=== PATIENT | female | born 1990 | race Caucasian/White ===

== ENCOUNTER 2019-06-04 12:27 | Inpatient (IN) | payer SELFPAY ==
[2019-06-04 12:33] VITALS: BP 122/88; PULSE 97; RESP 18; TEMP 36.8; O2SAT 97; BMI 35.9
[2019-06-04 12:58] VITALS: O2SAT 99
[2019-06-04 13:59] LABS: Bilirubin Urine Neg (NEGATIVE); Blood Urine Neg (Negative); Glucose Urine UA Norm (Normal); Ketones Urine Negative (Negative); Leukocyte Esterase Urine 2+ (Negative); Nitrate Urine Negative (Negative); Protein Urine Trace (Negative); Urine Appearance Cloudy (CLEAR); Urine Color Yellow (Yellow); Urobilinogen Urine Norm (Negative); pH Urine 5 (5-7)
[2019-06-04 14:06] LABS: Bacteria Urine 2+; RBC Urine 0-4 /hpf (0-2); WBC Urine 55-80 /hpf (0-5)
[2019-06-04 14:13] LABS: Barbiturates Screen Urine Negative (Negative); Benzodiazepines Screen Urine Negative (Negative); Cocaine Screen Urine Negative (Negative); Opiate Screen Urine Negative (Negative); PCP Screen Urine Negative (Negative); THC Screen Urine Positive (Negative)
[2019-06-04 14:15] LABS: Basophils % 0.2 %; Eosinophils # 0.1 10^3/uL (0.0-0.8); Eosinophils % 2.2 %; Hematocrit 38.9 % (37.0-47.0); Hemoglobin 12.5 g/dL (11.5-15.3); Lymphocytes # 1.1 10^3/uL (0.8-4.8); Lymphocytes % 23.2 %; Mean Corpuscular HGB Conc 32.1 g/dL (30.0-36.0); Mean Corpuscular Hemoglobin 27.2 pg (28.0-34.0); Mean Corpuscular Volume 84.6 fL (81-99); Mean Platelet Volume 11.3 fL (7.4-10.4); Monocytes # 0.4 10^3/uL (0.2-0.9); Neutrophils # 3.1 10^3/uL (1.8-7.7); Neutrophils % 66.2 %; Nucleated Red Blood Cells % 0 %; Platelet Count 268 10^3/cmm (130-400); Red Cell Distribution Width 14.5 % (12.1-15.1); White Blood Count 4.6 10^3/uL (4.0-10.0)
[2019-06-04 14:18] LABS: HCG, Serum Qual Negative (Negative)
--- NOTE | 2019-06-04 14:21 | ED_ITS ---
HPI - Psych General: Chief Complaint: Psychiatric Symptoms Stated Complaint: dizzy Time Seen by Provider: 06/04/19 12:51 Source: patient Mode of arrival: ambulatory Limitations: no limitations History of Present Illness: HPI Narrative: Patient is a 28-year-old female who presents to ED today with complaints of suicidal ideation over the past few days. Patient tells me that she feels she is not good enough and feels that the world would be better off without her. She has no specific plan. She reports a previous suicide attempt 1 year ago by cutting. She does not take any current medications for her depression. She tells me she does have a history significant for bipolar personality disorder, depression with schizophrenic tendencies, and anxiety. Patient states she is currently homeless and unemployed. She is currently living with a friend. She tells me she has 3 kids all of which are in the custody of family members. complaint: suicidal ideation Onset (ago): day(s) Duration: constant Relieving factors: none Exacerbating factors: none Associated psychiatric symptoms: depression and suicidal ideation Associated symptoms: Reports depression and suicidal ideation; Deny auditory hallucinations, visual hallucinations or homicidal ideation Treatments prior to arrival: none If self harm: admits thoughts of self harm Review of Systems Const: Denies: fever or chills Card: Denies: chest pain, palpitations, lightheadedness or syncope Resp: Denies: shortness of breath GI: Denies: abdominal pain, nausea, vomiting or diarrhea Skin/Breast: Denies: rash Neuro: Denies: headache Psych: Reports: anxiety, depression and suicidal ideation; Denies: visual hallucinations, auditory hallucinations or homicidal ideation PFS ED PFSH: Statuses (acute, chronic, etc) shown below reflect problem list status as previously entered and may not be historically accurate Social History Smoking and tobacco status: current every day smoker Female Reproductive History: Date of last menstrual period: 05/24/19 Physical Exam Const: COMMON NORMALS: no apparent distress, oriented x3, alert and well nour ished GENERAL APPEARANCE: cooperative Resp: COMMON NORMALS: normal respiratory effort and clear to auscultation bilaterally AUSCULTATION: clear to auscultation bilaterally Cardio: COMMON NORMALS: regular rate and regular rhythm RATE: regular rate RHYTHM: regular rhythm Neuro: COMMON NORMALS: oriented x3 SENSORIUM/ORIENTATION: Yes alert Psych: COMMON NORMALS: mental status grossly normal, thought process normal, cooperative, affect normal, speech normal and activity/motor behavior normal ACTIVITY/MOTOR BEHAVIOR: Yes appropriate eye contact and No psychomotor agitation SPEECH: Yes normal speech THOUGHT PROCESS: normal thought process MEMORY/COGNITION: Yes memory grossly intact and Yes cognition grossly intact INSIGHT: insight good JUDGEMENT: judgment good MDM - Psych MDM Narrative: Medical decision making narrative: Dr. Diaz will write admit orders to NPU. Will write for RX for her UTI. Lab Data: Labs: Lab Results 06/04/19 06/04/19 06/04/19 Range/Units 12:45 12:45 13:50 WBC 4.6 (4.0-10.0) 10^3/ uL RBC 4.60 (4.1-5.3) 10^6/u L Hgb 12.5 (11.5-15.3) g/dL Hct 38.9 (37.0-47.0) % MCV 84.6 (81-99) fL MCH 27.2 L (28.0-34.0) pg MCHC 32.1 (30.0-36.0) g/dL RDW 14.5 (12.1-15.1) % Plt Count 268 (130-400) 10^3/c mm MPV 11.3 H (7.4-10.4) fL Neut % (Auto) 66.2 % Lymph % (Auto) 23.2 % Williams % (Auto) 8.0 % Eos % (Auto) 2.2 % Baso % (Auto) 0.2 % Neut # (Auto) 3.1 (1.8-7.7) 10^3/u L Lymph # (Auto) 1.1 (0.8-4.8) 10^3/u L Williams # (Auto) 0.4 (0.2-0.9) 10^3/u L Eos # (Auto) 0.1 (0.0-0.8) 10^3/u L Baso # (Auto) 0.0 (0.0-0.1) 10^3/u L Nucleated RBC % (a uto) 0 % Nucleated RBCs # 0.0 /100WBC Sodium (136-145) mmol/L Potassium (3.5-5.1) mmol/L Chloride (98-107) mmol/L Carbon Dioxide (22-29) mmol/L Anion Gap (5-19) BUN (6-20) mg/dL Creatinine (0.5-0.9) mg/dL GFR Calculation (90-130) mL/min Glucose (65-115) mg/dL Calcium (8.5-10.5) mg/dL Total Bilirubin (0.15-1.2) mg/dL AST (0-32) U/L ALT (0-33) U/L Alkaline Phosphata se (35-105) IU/L Total Protein (6.6-8.7) g/dL Albumin (3.5-5.2) g/dL Globulin (1.3-4.6) g/dL HCG, Qual (Negative) Urine Color Yellow (Yellow) Urine Appearance Cloudy (CLEAR) Urine pH 5 (5-7) Ur Specific Gravit y 1.020 (1.005-1.030) Urine Protein Trace (Negative) Urine Glucose (UA) Norm (Normal) Urine Ketones Negative (Negative) Urine Occult Blood Neg (Negative) Urine Nitrate Negative (Negative) Urine Bilirubin Neg (NEGATIVE) Urine Urobilinogen Norm (Negative) mg/dL Ur Leukocyte Veronica ase 2+ H (Negative) Urine RBC 0-4 H (0-2) /hpf Urine WBC 55-80 H (0-5) /hpf Ur Squamous Epith Cells 10-15 H (0-5) Urine Bacteria 2+ H (NONE) Salicylates (3-10) mg/dL Urine Opiates Scre en Negative (Negative) ng/mL Acetaminophen (10-30) ug/mL Ur Barbiturates Sc reen Negative (Negative) ng/mL Ur Phencyclidine S crn Negative (Negative) ng/mL Ur Amphetamines Sc reen Positive H (Negative) ng/mL U Benzodiazepines Scrn Negative (Negative) ng/mL Urine Cocaine Scre en Negative (Negative) ng/mL U Marijuana (THC) Screen Positive H (Negative) ng/mL Ethyl Alcohol (0-10) mg/dL 06/04/19 06/04/19 Range/Units 13:50 13:50 WBC (4.0-10.0) 10^3/ uL RBC (4.1-5.3) 10^6/u L Hgb (11.5-15.3) g/dL Hct (37.0-47.0) % MCV (81-99) fL MCH (28.0-34.0) pg MCHC (30.0-36.0) g/dL RDW (12.1-15.1) % Plt Count (130-400) 10^3/c mm MPV (7.4-10.4) fL Neut % (Auto) % Lymph % (Auto) % Williams % (Auto) % Eos % (Auto) % Baso % (Auto) % Neut # (Auto) (1.8-7.7) 10^3/u L Lymph # (Auto) (0.8-4.8) 10^3/u L Williams # (Auto) (0.2-0.9) 10^3/u L Eos # (Auto) (0.0-0.8) 10^3/u L Baso # (Auto) (0.0-0.1) 10^3/u L Nucleated RBC % (a uto) % Nucleated RBCs # /100WBC Sodium 136 (136-145) mmol/L Potassium 4.2 (3.5-5.1) mmol/L Chloride 101 (98-107) mmol/L Carbon Dioxide 26 (22-29) mmol/L Anion Gap 13.2 (5-19) BUN 11 (6-20) mg/dL Creatinine 0.9 (0.5-0.9) mg/dL GFR Calculation 74.6 L (90-130) mL/min Glucose 95 (65-115) mg/dL Calcium 9.6 (8.5-10.5) mg/dL Total Bilirubin 0.3 (0.15-1.2) mg/dL AST 12 (0-32) U/L ALT 14 (0-33) U/L Alkaline Phosphata se 84 (35-105) IU/L Total Protein 7.0 (6.6-8.7) g/dL Albumin 4.3 (3.5-5.2) g/dL Globulin 2.7 (1.3-4.6) g/dL HCG, Qual Negative (Negative) Urine Color (Yellow) Urine Appearance (CLEAR) Urine pH (5-7) Ur Specific Gravit y (1.005-1.030) Urine Protein (Negative) Urine Glucose (UA) (Normal) Urine Ketones (Negative) Urine Occult Blood (Negative) Urine Nitrate (Negative) Urine Bilirubin (NEGATIVE) Urine Urobilinogen (Negative) mg/dL Ur Leukocyte Veronica ase (Negative) Urine RBC (0-2) /hpf Urine WBC (0-5) /hpf Ur Squamous Epith Cells (0-5) Urine Bacteria (NONE) Salicylates < 0.3 L (3-10) mg/dL Urine Opiates Scre en (Negative) ng/mL Acetaminophen < 5.0 L (10-30) ug/mL Ur Barbiturates Sc reen (Negative) ng/mL Ur Phencyclidine S crn (Negative) ng/mL Ur Amphetamines Sc reen (Negative) ng/mL U Benzodiazepines Scrn (Negative) ng/mL Urine Cocaine Scre en (Negative) ng/mL U Marijuana (THC) Screen (Negative) ng/mL Ethyl Alcohol < 10 (0-10) mg/dL Discharge Plan Discharge Patient Disposition: Xfer Psychiatric Hosp Clinical Impression: Suicidal ideation, Polysubstance abuse UTI (urinary tract infection) Qualifiers: Urinary tract infection type: acute cystitis Hematuria presence: with hematuria Qualified Code(s): N30.01 - Acute cystitis with hematuria Condition: Stable Referrals: Josef Gore MD [Primary Care Provider] - Coding Level of Care Code ED Embedded Hardware Engineer for Chg Fwd Exam Problem Focused
[2019-06-04 14:25] LABS: Alanine Aminotransferase 14 U/L (0-33); Albumin Level 4.3 g/dL (3.5-5.2); Alkaline Phosphatase 84 IU/L (35-105); Anion Gap 13.2 (5-19); Aspartate Amino Transferase 12 U/L (0-32); Blood Urea Nitrogen 11 mg/dL (6-20); Calcium 9.6 mg/dL (8.5-10.5); Carbon Dioxide 26 mmol/L (22-29); Chloride 101 mmol/L (98-107); Globulin 2.7 g/dL (1.3-4.6); Glomerular Filtration Rate 74.6 mL/min (90-130); Glucose 95 mg/dL (65-115); Potassium 4.2 mmol/L (3.5-5.1); Sodium 136 mmol/L (136-145); Total Bilirubin 0.3 mg/dL (0.15-1.2)
[2019-06-04 14:28] LABS: Acetaminophen < 5.0 ug/mL (10-30); Alcohol Level < 10 mg/dL (0-10); Salicylate < 0.3 mg/dL (3-10)
[2019-06-04 14:28] LABS: Amphetamines Screen Urine Positive (Negative)
[2019-06-04 15:54] VITALS: BP 117/82; PULSE 90; RESP 16; O2SAT 99
[2019-06-04 16:08] VITALS: BP 131/84; PULSE 106; RESP 20; TEMP 36.8; O2SAT 97
[2019-06-04 17:15] VITALS: BP 131/84; PULSE 106; RESP 20; TEMP 36.8; O2SAT 97
[2019-06-04 19:56] VITALS: BP 112/79; PULSE 95; RESP 20; TEMP 36.8; O2SAT 95
--- NOTE | 2019-06-04 21:44 | P.PN_ITS ---
Subjective NPU Subjective: Interval history: Patient is a 28-year-old female who presents to ED today with complaints of suicidal ideation over the past few days. Patient tells me that she feels she is not good enough and feels that the world would be better off without her. She has no specific plan. She reports a previous suicide attempt 1 year ago by cutting. She does not take any current medications for her depression. She tells me she does have a history significant for bipolar personality disorder, depression with schizophrenic tendencies, and anxiety. Patient states she is currently homeless and unemployed. She is currently living with a friend. She tells me she has 3 kids all of which are in the custody of family members. Mental Status Exam MSE Comments: This is a 28-year-old female who presents at her stated age. Presentation is clean and well-groomed. Mood is quite depressed with affect frequently tearful. Thought processes are integrated and free of any racing, blocking or looseness of association. There is no evidence of psychosis, such as but not limited to hallucinations, delusions, ideas of reference. There are, I must admit, voices that tell her she is worthless. However, these express, I believe, the patient's self-esteem, is suppressed, with persistent ideation that the world would be better off without her. They are not, I believe, anything more than symptoms of a severe depression. Cognitive functions are intact, with orientation x3, unimpaired memory, recent and remote, although insight and judgment appear to be impaired. She does verbalize suicidal, but not homicidal, ideation, plan or intent. She believes she can keep herself safe here in the [facility] [place] [facility]. Vitals/I&O/Wt Last Vital Signs Temp 98.2 F 06/04/19 19:56 Pulse 95 06/04/19 19:56 Resp 20 H 06/04/19 19:56 BP 112/79 06/04/19 19:56 Pulse Ox 95 06/04/19 19:56 Weight last 48 hrs Weight 236 lb Data NPU : 06/04/19 13:50 06/04/19 13:50 A&P Additional A&P Information 1. Major depressive disorder, recurrent, severe. 2. Cystitis with hematuria. Involuntary Hold Information 96 Hour Hold: 96 Hour Involuntary Admission: No Attestations NPU Medical Necessity Statement*: Patient is in the throes of a pronounced pressure by episode and is at risk. I anticipate 5-7 midnights additional hospitalization Time Spent in Patient Care: Greater than 35 minutes (>than 50% of time spent in counselling and/or direct pt care on unit) . Coding Level of Care Code Acute Time Buyer for Ethel Jameson
[2019-06-04] MEDS: sulfamethoxazole-trimeth DS 160-800 mg Tablet 1 TAB PO (22:35)
[2019-06-05 06:00] VITALS: BP 115/81; PULSE 90; RESP 21; TEMP 36.9; O2SAT 98
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
[2019-06-05] MEDS: sulfamethoxazole-trimeth DS 160-800 mg Tablet 1 TAB PO ×2 (08:24→17:40)
[2019-06-05] MEDS: acetaminophen 325 mg Tablet 650 MG PO (08:24)
--- NOTE | 2019-06-05 11:40 | P.HP_ITS ---
Providers/Chief Complaint Admitting Physician: Naun Magallon Primary Care Provider: Josef Gore MD Chief Complaint: dizzy HPI NPU History of Present Illness Renetta Tom is a 28 year old female Meds NPU Home Medications Medication Instructions Recorded Confirmed Type No Known Home Medications 06/04/19 06/04/19 History Allergies Allergy/AdvReac Type Severity Reaction Status Date / Time dicyclomine [From Bentyl] Allergy ALGY-Swell Verified 06/04/19 12:38 Lip/Tongue/Throat PFSH NPU PFSH: Social History Smoking and tobacco status: current every day smoker Vitals/I&O/Wt Last Vital Signs Temp 98.4 F 06/05/19 06:00 Pulse 90 06/05/19 06:00 Resp 21 H 06/05/19 06:00 BP 115/81 06/05/19 06:00 Pulse Ox 98 06/05/19 06:00 Weight last 48 hrs Weight 107.048 kg Data NPU : 06/04/19 13:50 06/04/19 13:50 Involuntary Hold Information 96 Hour Hold: 96 Hour Involuntary Admission: No Attestations NPU Medical Necessity Statement*: patient remained in the hospital another 3-5 days for verification of safety of medication. Coding Level of Care Code Acute Property Damage Claims Adjustor for Ethel Jameson
[2019-06-05] MEDS: fluoxetine 20 mg Capsule PO (12:04)
[2019-06-05 13:05] VITALS: BP 116/79; PULSE 84; RESP 18; TEMP 36.9; O2SAT 97
[2019-06-05 21:24] VITALS: BP 123/85; PULSE 93; RESP 20; TEMP 37.1
[2019-06-06 06:00] VITALS: BP 115/78; PULSE 85; RESP 18; TEMP 36.8; O2SAT 98
[2019-06-06] MEDS: fluoxetine 20 mg Capsule PO (09:04)
[2019-06-06] MEDS: sulfamethoxazole-trimeth DS 160-800 mg Tablet 1 TAB PO (09:04)
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
[2019-06-06 10:51] VITALS: BP 115/78; PULSE 85; RESP 18; TEMP 36.8; O2SAT 98
== END 2019-06-06 12:36 | disposition home or self-care (01) | DRG 885 ==
LOC: ER 14:28 → NP 16:00
PROVIDERS: Emergency Provider Physician Assistant; PCP Family Medicine
DX: F32.2 Major depressive disorder, single episode, severe without psychotic features (principal); R45.851 Suicidal ideations; F12.10 Cannabis abuse, uncomplicated; F17.210 Nicotine dependence, cigarettes, uncomplicated; Z59.0 Homelessness
CPT/HCPCS: 12345; 36415; 80053; 80307; 81001; 84703; 85025; 99284